=== PATIENT | female | born 1985 | race Caucasian/White ===

== ENCOUNTER 2016-11-01 15:09 | Emergency (ER) | payer BC ==
[2016-11-01] MEDS ORDERED: NORMAL SALINE 1000 ML 1,000 ML IV ONE (15:17)
[2016-11-01] MEDS ORDERED: HYDROMORPHONE HCL INJ/PF 2 MG/ML AMPULE IV ONE (15:17)
[2016-11-01] MEDS ORDERED: DIPH/PERTUSS(ACELL)/TETANUS VAC/PF 0.5 ML SYR (>=10YO) IM ONE (15:17)
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
[2016-11-01] MEDS ORDERED: FENTANYL CITRATE INJ/PF 100 MCG/2 ML AMPUL IV ONE (15:50)
[2016-11-01 18:22] VITALS: BP 128/74
== END 2016-11-01 18:15 | disposition home or self-care (01) ==
LOC: ER 15:09
DX: T24.211A Burn of second degree of right thigh, initial encounter (principal); X12.XXXA Contact with other hot fluids, initial encounter; F17.210 Nicotine dependence, cigarettes, uncomplicated; Z23 Encounter for immunization
CPT/HCPCS: 99283; 96374; 96375; 90715; J3010; J1170

== ENCOUNTER 2017-05-28 19:20 | Emergency (ER) | payer BC ==
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
[2017-05-28] MEDS ORDERED: LIDOCAINE 5% (700 MG) TRANSDERMAL ADH..PATCH TP ONE (22:34)
[2017-05-28 23:05] VITALS: BP 135/75
== END 2017-05-28 22:51 | disposition home or self-care (01) ==
LOC: ER 19:20
DX: M54.5 Low back pain (principal)
CPT/HCPCS: 99283